=== PATIENT | female | born 1990 | race American Indian/Alaskan Native ===

== ENCOUNTER 2016-04-19 09:07 | Outpatient (CLI) | payer MEDICAID ==
[2016-04-19 09:55] VITALS: BP 113/48
[2016-04-19] MEDS ORDERED: LACTATED RINGERS 500 ML IV ONE (10:01)
[2016-04-19 10:22] LABS: Bacteria,Urine 1+ /HPF (Negative); Bilirubin,Urine NEG (Negative); Blood,Urine NEG (Negative); Ketones,Urine NEG (Negative); Leukocyte Esterase,Urine TR (Negative); Mucus,Urine 1+ /HPF; Nitrite,Urine NEG (Negative); Protein,Urine <15 mg/dL mg/dL (Negative); Urobilinogen,Urine < 2.0 mg/dL (<2.0)
[2016-04-19] MEDS ORDERED: VISTARIL PO PRN (11:13)
== END 2016-04-19 11:15 | disposition home or self-care (01) ==
LOC: TRG 09:07
PROVIDERS: ATTEND Obstetrics & Gynecology
DX: O26.899 Other specified pregnancy related conditions, unspecified trimester (principal); R10.9 Unspecified abdominal pain; Z3A.00 Weeks of gestation of pregnancy not specified
CPT/HCPCS: 59025; 81001; Q0177

== ENCOUNTER 2016-06-20 09:35 | Outpatient (CLI) | payer MEDICAID ==
[2016-06-20 10:02] VITALS: BP 122/56
[2016-06-20] MEDS ORDERED: LACTATED RINGERS 1,000 ML ONE (10:56)
[2016-06-20] MEDS ORDERED: LACTATED RINGERS 1,000 ML IV ONE ×2 (10:56→11:13)
== END 2016-06-20 12:33 | disposition home or self-care (01) ==
LOC: TRG 09:35
PROVIDERS: ATTEND Obstetrics & Gynecology
DX: O47.1 False labor at or after 37 completed weeks of gestation (principal); Z3A.37 37 weeks gestation of pregnancy
CPT/HCPCS: 96360; J7120

== ENCOUNTER 2016-07-04 09:19 | Inpatient (IN) | payer MEDICAID ==
--- NOTE | 2016-07-03 20:48 | History and Physical Report ---
History of Present Illness Date of examination: 07/04/16 History of present illness: Patient admitted for repeat section.Patient informed the risks of the surgery include bleeding possibly bleeding heavy enough to require blood transfusion, infection possible damage to bowel bladder ureter. Patient's questions answered. Patient understands and desires to proceed. Menstrual History Regularity: regular Menses every: 28 days Duration: 6-7 LMP: 10/05/2015 LMP reliability: definite LMP character: normal test type: urine test Date: 12/19/2015 BC at conception: none Planned ? no EDC Calculations LMP: 07/11/2016 EDC Confirmation: 07/11/2016 Past History : 3 Term Births: 2 Premature Births: 0 Living Children: 2 Para: 2 Mult. Births: 0 Prev : 2 Prev. attempt? 0 Aborta: 0 Elect. Ab: 0 Spont. Ab: 0 Ectopics: 0 # 1 Delivery date: 01/24/2010 Weeks Gestation: 40 labor: no Delivery type: Hours of labor: 4 Anesthesia type: epidural Delivery location: [facility] Sex: Female weight: 6-5 Name: Carol Comments: FHT dropped # 2 Delivery date: 02/11/2011 Weeks Gestation: 39 labor: no Delivery type: Anesthesia type: spinal Delivery location: [facility] Sex: Female weight: 7-6 Name: Rachel Comments: Scheduled Past Medical History: Negative Past Medical History Past Surgical History: Abdominal Surgery: Dermiod cyst removal age 8 right oophorectomy Past Medical History 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 of genital herpes: no Partner hx. of genital herpes: no Genetic History Congenital Heart Defect: Mom: no Dad: no Dmitry Disease: Mom: no Dad: no Thalassemia Mom: no Dad: no Neural Tube Defect Mom: no Dad: no Down's Syndrome Mom: no Dad: no Alek-Sachs Mom: no Dad: no Sickle Cell Disease/Trait Mom: no Dad: no Hemophilia Mom: no Dad: no Muscular Dystrophy Mom: no Dad: no Cystic Fibrosis Mom: no Dad: no Cherokee Chorea Mom: no Dad: no Mental Retardation Mom: no Dad: no Fragile X Mom: no Dad: no Other Genetic/Chromosomal Disorder Mom: no Dad: no Child w/other defect Mom: no Dad: no Enviromental Exposures Xray Exposure: no Medication, drug, or alcohol use since LMP: no Chemical/Other Exposure: no Exposure to Cat Liter: no Current Allergies (reviewed today): No known allergies Past History Past Medical History: other (See HPI) Past Surgical History: other (See HPI) 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 (See HPI) Family/Genetic History: other (See HPI) Social history: other (See HPI) - Obstetrical History Expected Date of Delivery: 07/11/16 Actual Gestation: 39 Week(s) 0 Day(s) : 3 Para: 2 Hx # Term Pregnancies: 2 Number of Pregnancies: 0 Spontaneous Abortions: 0 Induced : 0 Number of Living Children: 2 Medications and Allergies Allergies Allergy/AdvReac Type Severity Reaction Status Date / Time No Known Allergies Allergy Unverified 05/31/13 20:42 Home Medications Medication Instructions Recorded Confirmed Last Taken Type Amoxicillin [Trimox CAP] 500 mg PO Q8H #21 capsule 06/01/13 Unknown Rx Promethazine Dm [Phenergan DM 5 ml PO Q6H PRN #120 ml 06/01/13 Unknown Rx 6.25-15 mg/5 ml] metroNIDAZOLE [Flagyl] 500 mg PO BID #14 tablet 06/01/13 Unknown Rx - Physical Exam Breasts: Positive: deferred Cardiovascular: Regular rate Lungs: Positive: Normal air movement Abdomen: Positive: normal appearance, other (scar) Genitourinary (Female): Positive: normal external genitalia Deep Tendon Reflex Grade: Normal +2 - Obstetrical FHR: category 1 Uterine Contraction Pattern: Absent Results Result Diagrams: 07/04/16 09:50 All other labs normal. Assessment and Plan - Patient Problems (1) Maternal care for uterine scar due to previous section, delivered Current Visit: Yes Status: Acute Plan to address problem: Admit for repeat section per protocol (2) 39 weeks gestation of Current Visit: Yes Status: Acute
[~2016-07-04 09:19] MED LIST: ANCEF/STERILE WATER 2 GM/20 ML 2 GM/20 ML SYRINGE IV NR; BICITRA PO ONE; PEPCID IV ONE; PITOCin/NS 20 UNIT/1000ML DRIP 20 UNITS/1,000 ML BAG IV SCH; REGLAN IV ONE
[2016-07-04 10:19] LABS: Basophils % (Auto) 0.4 % (0.0-1.8); Eosinophils % (Auto) 0.9 % (0.0-4.3); Hematocrit 36.6 % (30.3-42.9); Mean Corpuscular HGB Conc 33 % (30-34); Mean Corpuscular Hemoglobin 27 pg (28-32); Mean Corpuscular Volume 81 fl (79-97); Platelet Count 203 K/mm3 (140-440); Red Blood Count 4.52 M/mm3 (3.65-5.03); Red Cell Distribution Width 14.8 % (13.2-15.2); White Blood Count 8.1 K/mm3 (4.5-11.0)
[2016-07-04] MEDS ORDERED: BICITRA ONE (10:20)
--- NOTE | 2016-07-04 10:22 | Anesthesia Consultation ---
Anesthesia Consult and Med Hx Date of service: 07/04/16 - Airway Anesthetic Teeth Evaluation: Good ROM Head & Neck: Adequate Mental/Hyoid Distance: Adequate Mallampati Class: Class II Intubation Access Assessment: Probably Good - Pre-Operative Health Status ASA Pre-Surgery Classification: ASA2 Proposed Anesthetic Plan: Epidural, Spinal - Pulmonary Hx Asthma: No - Cardiovascular System Hx Hypertension: No - Central Nervous System Hx Seizures: No Hx Psychiatric Problems: No - Endocrine Hx Renal Disease: No Hx Hypothyroidism: No Hx Hyperthyroidism: No - Hematic Hx Anemia: No Hx Sickle Cell Disease: No - Other Systems Hx Alcohol Use: No - Additional Comments Anesthesia Medical History Comments: repeat
[2016-07-04] MEDS ORDERED: NARCAN 0.4 MG/1 ML IV PRN ×2 (10:23→14:09)
[2016-07-04] MEDS ORDERED: PHENERGAN PR PRN (10:23)
[2016-07-04] MEDS ORDERED: PHENERGAN PO PRN (10:23)
[2016-07-04] MEDS ORDERED: DILAUDID IV PRN (10:23)
[2016-07-04] MEDS ORDERED: ZOFRAN IV PRN ×2 (10:23→17:52)
[2016-07-04] MEDS ORDERED: BENADRYL IV PRN (10:23)
--- NOTE | 2016-07-04 10:23 | Anesthesia Day of Surgery ---
Anesthesia Day of Surgery - Day of Surgery Patient Examined: Yes Patient H&P Reviewed: Yes Patient is NPO: Yes
[2016-07-04] MEDS ORDERED: TORADOL IV PRN (10:24)
[2016-07-04] MEDS: LACTATED RINGERS 1,000 ML IV SCH ×2 (10:40→11:07)
[2016-07-04] MEDS ORDERED: SODIUM CHLORIDE FLUSH SYRINGE 10 ML IV NR ×2 (11:00→14:09)
[2016-07-04] MEDS ORDERED: MORPHINE ONE (11:24)
[2016-07-04] MEDS ORDERED: NACL 0.9% 1000 ML 1,000 ML ONE (11:57)
[2016-07-04] MEDS ORDERED: WATER FOR IRRIG STERILE IR ONE (12:05)
[2016-07-04] MEDS ORDERED: NACL 0.9% IR ONE (12:06)
[2016-07-04] MEDS ORDERED: ZOFRAN ONE (12:14)
--- NOTE | 2016-07-04 12:38 | Operative Report ---
Operative Report Operative Report: Date of procedure: 07/04/2016 Pre-operative diagnosis: Intrauterine at 39 weeks with previous section 2. Post-operative diagnosis: Same Procedure name(s): Repeat low transverse section Surgeon: Gee Nelson MD Mill Operator Head: Anesthesia: Spinal EBL: 700 mL Complications: None Findings: Patient with adhesions between the fascia and underlying rectus muscles. Very thin lower uterine segment otherwise normal uterus and normal adnexa bilaterally. Male weight 8 lbs. 15 oz. Apgars 8 at 1 minute and 9 at 5 minutes. Specimen(s): None Procedure: The patient was brought to the operating room. A spinal was placed without any complications. She was then placed in left lateral tilt. Prepped and draped in the usual sterile manner. After testing for adequate anesthesia level, a Pfannenstiel incision was made through her previous scar. This incision was taken down to the fascia. The fascia was then nicked in the midline. This incision was extended out laterally with Zelaya scissors. The fascia was then sharply and bluntly from the underlying rectus muscles. The rectus muscles were bluntly and sharply . The peritoneum was then entered with the carbon paper machine operator's fingers. This incision was spread vertically with care not to damage the bladder below. The bladder flap was then formed sharply and bluntly with Metzenbaum scissors. The Ernesto self- retaining tractor was then placed without any difficulty. A transverse incision was made in lower uterine segment. This incision was extended laterally with the operators fingers. The amniotic sac was then entered bluntly with the carbon paper machine operator's fingers. The was delivered from the vertex position. Bulb suction on the mother's abdomen. Cord was double clamped and cut. The was then passed to the nursery personnel who were in attendance. The above scores were given by the nursery personnel. The placenta was then bluntly removed. The uterus was then externalized and wiped clean the remaining products. The uterine incision was closed in layers. The first incision was closed in a locking manner using 0 Vicryl. This was followed by imbricating stitch also with 0 Vicryl. This closure was hemostatic after additional [id number] sutures. The bladder flap was copiously irrigated and found to be hemostatic. The pelvis was copiously irrigated and found to be hemostatic. The uterus was then placed back to the patient's abdomen. The retractors were removed. The rectus muscles were inspected and found to be hemostatic. The fascia was then closed in a running manner using 0 Vicryl. This incision was hemostatic irrigation Bovie. The skin was reapproximated with 4-0 Vicryl subcuticularly. The patient tolerated procedure well. Her urine was clear. The was admitted to the well baby nursery. The patient was accompanied to recovery room in good condition. Instrument count correct 3
--- NOTE | 2016-07-04 13:49 | Post Anesthesia Evaluation ---
- Post Anesthesia Evaluation Patient Participated: Yes Airway Patent: Yes Stable Respiratory Function: Yes Temp > 96.8F: Yes Pain Manageable: Yes Adequeate Hydration: Yes Anesthesia Complications: No Block Receding Appropriately: Not Applicable
[2016-07-04] MEDS ORDERED: PITOCin/NS 20 UNIT/1000ML DRIP 20 UNITS/1,000 ML BAG IV SCH (14:09)
[2016-07-04] MEDS ORDERED: NORCO 5/325 PO PRN (14:09)
[2016-07-04] MEDS ORDERED: TUCKS PAD TP PRN (14:09)
[2016-07-04] MEDS ORDERED: ANCEF/NS 1 GM/50 ML 1 GM/50 ML BAG IV SCH (14:09)
[2016-07-04] MEDS ORDERED: D5LR 1,000 ML IV SCH (14:09)
[2016-07-04] MEDS ORDERED: LANSINOH TP PRN (14:09)
[2016-07-04] MEDS: BENADRYL IV PRN ×2 (15:14→21:00)
[2016-07-04] MEDS: TORADOL IV SCH ×2 (15:23→20:44)
[2016-07-05 01:03] LABS: Hematocrit 31.2 % (30.3-42.9); Hemoglobin 10.3 gm/dl (10.1-14.3)
[2016-07-05] MEDS: BENADRYL IV PRN ×3 (03:01→21:26)
[2016-07-05] MEDS: TORADOL IV SCH (03:02)
[2016-07-05] MEDS: MOTRIN PO PRN ×3 (08:16→22:30)
[2016-07-05] MEDS ORDERED: BICITRA PO ONE (09:00)
[2016-07-05] MEDS ORDERED: BENADRYL IV ONE (10:00)
[2016-07-05] MEDS: PRENATAL VITAMIN PO SCH (10:10)
[2016-07-05] MEDS: FEOSOL PO SCH (10:10)
--- NOTE | 2016-07-05 10:39 | Progress Note ---
Subjective Date of service: 07/05/16 Interval history: 1st POD after Patient is in the bed, relatively comfortable. Pain is well controlled with pain meds. Pruritus is mostly controlled with IV Benadryl 50mg. Ambulated well. No residual neurological deficit. No anesthesia complications Objective - Constitutional Vitals: Vital Signs - 12hr 07/04/16 07/05/16 07/05/16 23:25 04:00 08:05 Temperature 98.3 F 98.3 F 97.9 F Pulse Rate [ 77 68 From Monitor] Pulse Rate [ 78 Left Radial] Respiratory 18 18 20 Rate Blood Pressure 126/65 100/52 104/56 [Left Arm] - Labs CBC & Chem 7: 07/05/16 00:46
--- NOTE | 2016-07-05 11:33 | Progress Note ---
Assessment and Plan - Patient Problems (1) Maternal care for uterine scar due to previous section, delivered Current Visit: Yes Status: Acute Plan to address problem: Postoperative day #1. Discuss operative findings with patient and questions answered. Patient without fever. We'll ambulate in halls. We will continue routine postoperative care. Patient's postoperative hematocrit 32 (2) 39 weeks gestation of Current Visit: Yes Status: Acute (3) Pruritus, unspecified Current Visit: Yes Status: Acute Plan to address problem: Patient states started having pruritus and recovery room after surgery. States it still present but improvement. Most likely etiology for meds in spinal. We will continue to treat symptomatically no apparent rash seen. Subjective Date of service: 07/05/16 Patient Reports: Positive: feels better, still having pain, pain is less, tolerating liquids well, voiding w/o difficulty, flatus, afebrile (patient was complained of itching) Objective Vital Signs - 12hr 07/05/16 07/05/16 04:00 08:05 Temperature 98.3 F 97.9 F Pulse Rate [ 68 From Monitor] Pulse Rate [ 78 Left Radial] Respiratory 18 20 Rate Blood Pressure 100/52 104/56 [Left Arm] - General physical appearance well developed, well nourished, no distress - Respiratory normal expansion, normal respiratory effort - Abdomen soft, other (clean of bandage in place incision) Hernia: none - Integumentary no rash, no growths, no abnormal pigmentation - Neurologic normal coordination, normal sensation, other (patient's sleeping due to recent Benadryl dose) - Labs 07/05/16 00:46
[2016-07-05] MEDS ORDERED: FLUARIX QUAD 2016-2017(36 MOS+) IM ONE (12:00)
[2016-07-05] MEDS: NORCO 5/325 PO PRN ×2 (12:03→19:30)
[2016-07-06] MEDS: NORCO 5/325 PO PRN ×5 (00:05→18:15)
[2016-07-06] MEDS: MOTRIN PO PRN ×3 (03:34→21:42)
[2016-07-06] MEDS: BENADRYL IV PRN (04:51)
[2016-07-06] MEDS ORDERED: BOOSTRIX IM ONE (06:00)
--- NOTE | 2016-07-06 10:38 | Progress Note ---
Assessment and Plan - Patient Problems (1) Maternal care for uterine scar due to previous section, delivered Onset Date: ~07/04/16 Current Visit: Yes Status: Acute Plan to address problem: continue routine care, may need Dulcolax Subjective - Subjective Date of service: 07/06/16 Principal diagnosis: repeat c/s delivered Interval history: POD 2, No c/o except no BM, seems concerned about this. Patient reports: appetite normal, voiding normally, ambulating normally, no bowel movement [place]: doing well Objective - Vital Signs Latest vital signs: Vital Signs Temp Pulse Pulse Resp BP 07/06/16 09:35 98.3 F 76 18 128/62 07/06/16 08:35 20 07/06/16 00:00 98.6 F 76 16 121/66 07/05/16 19:35 98.6 F 77 22 104/62 07/05/16 15:30 98.6 F 81 16 118/65 07/05/16 13:10 97.8 F 75 18 110/62 Intake and Output 07/05/16 07/06/16 07/06/16 22:59 06:59 14:59 Intake Total 480 1100 Balance 480 1100 Intake: Oral 480 300 Intake, Free Water 800 Other: Total, Intake Amount 240 300 - Exam Breasts: Present: deferred Lungs: Present: Normal air movement Abdomen: Present: normal appearance, soft, normal bowel sounds Uterus: Present: normal, firm Extremities: Present: normal Incision: Present: normal, dry, intact
[2016-07-06] MEDS: PRENATAL VITAMIN PO SCH (12:13)
[2016-07-06] MEDS: FEOSOL PO SCH (12:13)
[2016-07-06] MEDS: COLACE PO SCH ×2 (12:14→21:41)
[2016-07-06] MEDS ORDERED: DULCOLAX PR PRN (15:54)
[2016-07-07] MEDS: NORCO 5/325 PO PRN ×2 (00:02→08:22)
[2016-07-07] MEDS: MOTRIN PO PRN ×2 (03:59→10:13)
[2016-07-07] MEDS: PRENATAL VITAMIN PO SCH (10:14)
[2016-07-07] MEDS: FEOSOL PO SCH (10:14)
[2016-07-07] MEDS: COLACE PO SCH (10:14)
--- NOTE | 2016-07-07 10:29 | Discharge Summary ---
Providers - Providers Date of Admission: 07/04/16 09:19 Date of discharge: 07/07/16 Attending physician: IVANNA HILL 07/04/16 14:09 Consult to Financial Analyst Accountant [CONS] Routine Reason For Exam: Primary care physician: JACEK HORNE Hospitalization Reason for admission: IUP at term, other (elective repeat section) Delivery: Procedure: repeat low transverse Incision: normal, dry, intact Other procedures: none complications: none Discharge diagnosis: IUP at term delivered baby: male Hospital course: Routine post operative course Condition at discharge: Good Disposition: DISCHARGED TO HOME OR SELFCARE - Discharge Diagnoses (1) Maternal care for uterine scar due to previous section, delivered Status: Acute Plan - Discharge Medications Prescriptions: Ferrous Sulfate [Feosol 325 MG tab] 325 mg PO BID #60 tablet Ibuprofen [Motrin 800 MG tab] 800 mg PO Q6H PRN #30 tablet PRN Reason: Pain Lidocain2.5%/Prilocai2.5% [Emla] 5 gm TP 1XW #1 tube oxyCODONE /ACETAMINOPHEN [Percocet 5/325 mg] 1 - 2 tab PO Q4H PRN #30 tablet PRN Reason: Pain, Moderate - Provider Discharge Summary Activity: no sex for 6 weeks, no heavy lifting 4 weeks, no strenuous exercise Diet: routine Instructions: routine Additional instructions: [] Smoking cessation referral if applicable(refer to patient education folder for contact #) [] Refer to [facility]'s [facility] Booklet Call your doctor immediately for: * Fever > 100.5 * Heavy vaginal bleeding ( >1 pad per hour) * Severe persistent headache * Shortness of breath * Reddened, hot, painful area to leg or breast * Drainage or odor from incision. * Keep incision clean and dry at all times and follow doctor's instructions regarding bathing/showering - Follow up plan Follow up: JACEK HORNE MD [Primary Care Provider] - 7 Days IVANNA HILL MD [Staff Physician] - 7 Days
[2016-07-07] MEDS ORDERED: DEPO-PROVERA (CONTRACEPTION) IM NR (10:30)
[2016-07-07 15:34] VITALS: BP 143/80
== END 2016-07-07 12:30 | disposition home or self-care (01) | DRG 766 ==
LOC: APU 09:19 → OB 13:50
PROVIDERS: ADMIT Obstetrics & Gynecology; ATTEND Obstetrics & Gynecology
PROC: 10D00Z1 Extraction of Products of Conception, Low, Open Approach (ICD-10-PCS; principal; 2016-07-04)
PROC: 3E0234Z Introduction of Serum, Toxoid and Vaccine into Muscle, Percutaneous Approach (ICD-10-PCS; 2016-07-05)
DX: O34.211 Maternal care for low transverse scar from previous cesarean delivery (principal); L29.9 Pruritus, unspecified; N85.8 Other specified noninflammatory disorders of uterus; Z3A.39 39 weeks gestation of pregnancy; Z37.0 Single live birth; Z23 Encounter for immunization
CPT/HCPCS: 36415; 59025; 85014; 85018; 85025; 86850; 86900; 86901; 90471; 90686; 90715; 96360; 96361; 96374; 99211; G0463; J0690; J1050; J1200; J1885; J2270; J2405; J2590; J2765; J7030; J7120; J7121

== ENCOUNTER 2017-11-09 17:53 | Emergency (ER) | payer MEDICAID, OTHER ==
[2017-11-09 18:58] VITALS: BP 117/73
[2017-11-09] MEDS ORDERED: ZOFRAN ONE (19:46)
[2017-11-09] MEDS ORDERED: DILAUDID ONE (19:46)
[2017-11-09] MEDS ORDERED: ZOFRAN IV ONE (19:50)
[2017-11-09] MEDS ORDERED: DILAUDID IV ONE ×2 (19:50→20:34)
--- NOTE | 2017-11-09 20:00 | XRay Report ---
FINAL REPORT EXAM: XR TIBIA FIBULA 2V RT HISTORY: trauma, pain RT TIB/FIB TECHNIQUE: AP and lateral views of the right tibia fibula PRIORS: None. FINDINGS: There is an acute posterior malleolar fracture with mild widening of the fracture line, 2 mm. There is an obliquely oriented distal fibular fracture with the distal fracture fragment displaced posteriorly approximately 6 mm. There is an old medial malleolar fracture with a chronic fragment inferiorly displaced 4 mm from the main bone. The ankle and knee are normally aligned. The soft tissues are unremarkable. IMPRESSION: 1. Acute posterior malleolar and distal fibular fractures. 2. Chronic medial malleolar fracture.
--- NOTE | 2017-11-09 21:00 | Emergency Department Report ---
ED Extremity Problem HPI - General Chief complaint: Extremity Injury, Lower Stated complaint: (R) BROKEN LEG Time Seen by Provider: 11/09/17 20:13 Source: EMS Mode of arrival: Stretcher Limitations: Physical Limitation - History of Present Illness Initial comments: Patient injured her right ankle playing baseball, when she was running bases, planted her foot and slide to second base, but was wearing cleats, which caught the ground, and twisted her ankle, with acute injury, and inability to walk afterwards. She has generalized discomfort in her ankle, but good sensation in the right foot, and foot is warm. She has no prior history of injury to her ankle. She is in good general health, has no known allergies, does not smoke. Severity scale (0 -10): 4 - Related Data Previous Rx's Medication Instructions Recorded Last Taken Type Amoxicillin [Trimox CAP] 500 mg PO Q8H #21 capsule 06/01/13 Unknown Rx Promethazine Dm [Phenergan DM 5 ml PO Q6H PRN #120 ml 06/01/13 Unknown Rx 6.25-15 mg/5 ml] metroNIDAZOLE [Flagyl] 500 mg PO BID #14 tablet 06/01/13 Unknown Rx Ferrous Sulfate [Feosol 325 MG tab] 325 mg PO BID #60 tablet 07/04/16 Unknown Rx Ibuprofen [Motrin 800 MG tab] 800 mg PO Q6H PRN #30 tablet 07/04/16 Unknown Rx oxyCODONE /ACETAMINOPHEN [Percocet 1 - 2 tab PO Q4H PRN #30 tablet 07/04/16 Unknown Rx 5/325 mg] Lidocain2.5%/Prilocai2.5% [Emla] 5 gm TP 1XW #1 tube 07/07/16 Unknown Rx HYDROcodone/APAP 5-325 [[place] 1 - 2 each PO Q4HR PRN #30 tablet 11/09/17 Unknown Rx 5/325] Allergies Allergy/AdvReac Type Severity Reaction Status Date / Time No Known Allergies Allergy Unverified 05/31/13 20:42 ED Review of Systems ROS: Stated complaint: (R) BROKEN LEG Other details as noted in HPI Comment: All other systems reviewed and negative Cardiovascular: denies: chest pain, palpitations Endocrine: no symptoms reported Gastrointestinal: denies: abdominal pain, nausea, diarrhea Musculoskeletal: as per HPI Skin: denies: rash, lesions Neurological: denies: headache, weakness, paresthesias ED Past Medical Hx - Past Medical History Hx Hypertension: No Hx Congestive Heart Failure: No Hx Diabetes: No Hx Deep Vein Thrombosis: No Hx Renal Disease: No Hx Sickle Cell Disease: No Hx Seizures: No Hx Asthma: No Hx COPD: No Hx HIV: No - Surgical History Additional Surgical History: C-sections x 2 - Social History Smoking Status: Never Smoker Substance Use Type: Alcohol - Medications Home Medications: Home Medications Medication Instructions Recorded Confirmed Last Taken Type Amoxicillin [Trimox CAP] 500 mg PO Q8H #21 capsule 06/01/13 07/07/16 Unknown Rx Promethazine Dm [Phenergan DM 5 ml PO Q6H PRN #120 ml 06/01/13 07/07/16 Unknown Rx 6.25-15 mg/5 ml] metroNIDAZOLE [Flagyl] 500 mg PO BID #14 tablet 06/01/13 07/07/16 Unknown Rx Ferrous Sulfate [Feosol 325 MG tab] 325 mg PO BID #60 tablet 07/04/16 Unknown Rx Ibuprofen [Motrin 800 MG tab] 800 mg PO Q6H PRN #30 tablet 07/04/16 Unknown Rx oxyCODONE /ACETAMINOPHEN [Percocet 1 - 2 tab PO Q4H PRN #30 tablet 07/04/16 Unknown Rx 5/325 mg] Lidocain2.5%/Prilocai2.5% [Emla] 5 gm TP 1XW #1 tube 07/07/16 Unknown Rx HYDROcodone/APAP 5-325 [[place] 1 - 2 each PO Q4HR PRN #30 tablet 11/09/17 Unknown Rx 5/325] ED Physical Exam - General Limitations: Physical Limitation General appearance: alert, in distress (from injury of right ankle) - Head Head exam: Present: atraumatic, normocephalic - Eye Eye exam: Present: PERRL, EOMI - ENT ENT exam: Present: mucous membranes moist - Neck Neck exam: Present: normal inspection, full ROM. Absent: tenderness, meningismus - Respiratory Respiratory exam: Present: normal lung sounds bilaterally - Cardiovascular Cardiovascular Exam: Present: regular rate, normal heart sounds - GI/Abdominal GI/Abdominal exam: Present: soft. Absent: tenderness - Expanded Lower Extremity Exam Right Hip exam: Present: normal inspection, full ROM Upper Leg exam: Present: normal inspection, full ROM Knee exam: Present: normal inspection, full ROM. Absent: tenderness, swelling Ankle exam: Present: tenderness (bilaterally and posteriorly), swelling ( diffusely), deformity (mild lateral deviation,). Absent: abrasion, laceration, ecchymosis, dislocation Foot/Toe exam: Present: normal inspection. Absent: tenderness, swelling Neuro vascular tendon exam: Present: no vascular compromise (normal pulses right foot). Absent: pulse deficit, abnormal cap refill, motor deficit, sensory deficit, tendon deficit Gait: Positive: not tested/not observed - Back Exam Back exam: Present: normal inspection. Absent: tenderness - Neurological Exam Neurological exam: Present: alert, oriented X3, CN II-XII intact. Absent: motor sensory deficit - Psychiatric Psychiatric exam: Present: normal affect, normal mood - Skin Skin exam: Present: warm, dry, intact ED Course Vital Signs 11/09/17 11/09/17 18:48 18:58 Temperature 36.8 C Pulse Rate 77 Respiratory 18 Rate Blood Pressure 117/73 Blood Pressure 117/73 [Right] O2 Sat by Pulse 94 99 Oximetry - Reevaluation(s) Reevaluation #1: 11/09/17 21:02 Patient rechecked after placement of splint right leg and foot, with normal sensation, good movement of toes, good capillary refill. Pressures administered , patient instructed in proper use, nonweightbearing ED Medical Decision Making - Radiology Data Radiology results: report reviewed Bimalleolar fracture, involving distal right fibula, spiral component, 4-6 mm displacement, posterior malleolus, also with some displacement, and a chronic fracture fragment medially, which is smooth, and with 2 mm maximal displacement of talar plafond . 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 She has 2 mm displacement. She is stable for discharge, patient's findings discussed with orthopedist, Dr. Hernando Mendoza, and he will see in office in the morning. Patient instructed in splint use, elevation, crutch use, total nonweightbearing , and follow up in orthopedist's office for further care Critical Care Time: No Critical care attestation.: If time is entered above; I have spent that time in minutes in the direct care of this critically ill patient, excluding procedure time. ED Disposition Clinical Impression: Closed left malleolar fracture Qualifiers: Encounter type: initial encounter Qualified Code(s): S82.892A - Other fracture of left lower leg, initial encounter for closed fracture Disposition: TO HOME OR SELFCARE Is pt being admited?: No Does the pt Need Aspirin: No Condition: Stable Instructions: Ankle Fracture (ED), Crutch Instructions (ED) Additional Instructions: Use crutches for any ambulation, do not place any weight at all on the foot. Been given referral to Dr. Mendoza, and he knows about 2, and wants you to follow in the office in the morning. Call orthopedist office for Dr. Mendoza first thing in the morning when office opens, to make arrangements to be seen in the office tomorrow. Foot elevated as much as possible, this will decrease swelling which will decrease pain. We have prescribed [place] for pain, and you may take one or 2 tablets as needed for the amount of pain that you're experiencing, and urine repeat every 4 hours as needed. Prescriptions: HYDROcodone/APAP 5-325 [[place] 5/325] 1 - 2 each PO Q4HR PRN #30 tablet PRN Reason: Pain Referrals: PRIMARY CAREMD [Primary Care Provider] - 3-5 Days HERNANDO MENDOZA MD [Staff Physician] - 3-5 Days Forms: Work/School Release Form(ED) Time of Disposition: 21:07
== END 2017-11-09 21:27 | disposition home or self-care (01) ==
LOC: ED 17:53
DX: S82.841A Displaced bimalleolar fracture of right lower leg, initial encounter for closed fracture (principal); X50.1XXA Overexertion from prolonged static or awkward postures, initial encounter; Y93.64 Activity, baseball; Y92.89 Other specified places as the place of occurrence of the external cause; Y99.8 Other external cause status
CPT/HCPCS: 29515; 73590; 96374; 96375; 99284; J1170; J2405